=== PATIENT | female | born 1945 | race Caucasian/White ===

== ENCOUNTER → 2016-04-19 | Outpatient (CLI) | payer MEDICARE, OTHER ==
[~2016-04-19] MED LIST: LIPITOR20 MG PO; ZOLOFT100 MG PO
== END ==
LOC: MC.RAD 09:40
DX: Z12.31 Encounter for screening mammogram for malignant neoplasm of breast (principal); D24.2 Benign neoplasm of left breast; D24.1 Benign neoplasm of right breast

== ENCOUNTER → 2017-06-21 | Outpatient (CLI) | payer MEDICARE, OTHER | LOC: MC.RAD 05-22 09:40 | DX: Z12.31 Encounter for screening mammogram for malignant neoplasm of breast (principal); Z98.86 Personal history of breast implant removal ==

== ENCOUNTER → 2018-07-29 | Outpatient (CLI) | payer MEDICARE, OTHER | LOC: MC.RAD 10:43 | DX: Z12.31 Encounter for screening mammogram for malignant neoplasm of breast (principal); Z90.13 Acquired absence of bilateral breasts and nipples ==

== ENCOUNTER → 2019-05-07 | Outpatient (CLI) | payer MEDICARE, OTHER | LOC: MC.RAD 13:50 | DX: N63.20 Unspecified lump in the left breast, unspecified quadrant (principal) ==

== ENCOUNTER → 2020-06-28 | Outpatient (CLI) | payer MEDICARE, OTHER | LOC: MC.RAD 08:30 | DX: Z12.31 Encounter for screening mammogram for malignant neoplasm of breast (principal) ==

== ENCOUNTER → 2021-05-26 | Outpatient (CLI) | payer MEDICARE, OTHER | LOC: COL.RAD 08:36 | DX: R31.29 Other microscopic hematuria (principal) ==

== ENCOUNTER → 2021-09-13 | Outpatient (CLI) | payer MEDICARE | LOC: MC.RAD 08:38 | DX: Z12.31 Encounter for screening mammogram for malignant neoplasm of breast (principal) ==

== ENCOUNTER 2023-02-01 16:16 | Emergency (ER) | payer MEDICARE ==
[~2023-02-01] VITALS: Ht 154.9 cm; Wt 72.7 kg
[2023-02-01 16:21] VITALS: TEMP 97.9
[2023-02-01 17:00] LABS: BASO # 0.1 K/mm3 (0.0-0.2); BASO % 0.9 % (0.0-2.0); EOS # 0.3 K/mm3 (0.0-0.7); EOS % 4.2 % (0.0-4.0); GRAN % 62.3 % (42.2-75.2); HEMATOCRIT 40.9 % (37.0-47.0); HEMOGLOBIN 13.7 g/dl (12.5-16.0); LYMPH # 1.6 K/mm3 (1.2-3.4); LYMPH % 25.3 % (20.0-51.0); MEAN CELL VOLUME 95 fl (80.0-100.0); MEAN CORPUSCULAR HEMOGLOBIN 32 pg (27-31); MEAN CORPUSCULAR HGB CONC 34 g/dl (33.0-37.0); MEAN PLATELET VOLUME 10.1 fl (7.4-10.4); MONO # 0.4 K/mm3 (0.1-0.6); MONO % 6.8 % (1.7-9.3); PLATELET COUNT 225 K/mm3 (130-400); RED BLOOD COUNT 4.31 M/mm3 (4.10-5.30)
[2023-02-01 17:15] LABS: ALANINE AMINOTRANSFERASE 21 U/L (0-55); ALBUMIN 3.8 gm/dL (3.4-4.8); ALKALINE PHOSPHATASE 62 U/L (40-150); ANION GAP 11 mmol/L (7-16); AST,SGOT 18 U/L (5-34); BILIRUBIN,TOTAL 0.5 mg/dL (0.2-1.2); BLOOD UREA NITROGEN 18 mg/dL (10-20); CALCIUM 8.7 mg/dL (8.4-10.2); CARBON DIOXIDE 23 mmol/L (23-31); CHLORIDE 108 mmol/L (98-107); CREATININE, serum 0.84 mg/dL (0.57-1.11); GLUCOSE 89 mg/dL (70-99); POTASSIUM 4.2 mmol/L (3.5-4.5); SODIUM 142 mmol/L (136-145); TOTAL PROTEIN 6.7 gm/dL (6.2-8.1)
[2023-02-01 17:34] LABS: TROPONIN-I < 0.010 ng/mL (0.00-0.033)
[2023-02-01 19:46] VITALS: BP 134/73; PULSE 57
== END 2023-02-01 19:46 | disposition home or self-care (01) ==
LOC: COL.ER 16:16
PROVIDERS: Personal Emergency Response Attendant
DX: R07.2 Precordial pain (principal); I44.7 Left bundle-branch block, unspecified; Z87.891 Personal history of nicotine dependence

== ENCOUNTER 2023-02-27 10:05 | Day surgery (SDC) | payer MEDICARE, OTHER ==
[2023-02-27] VITALS (12 sets, daily range): BP systolic 94–130; BP diastolic 58–75; PULSE 58–66; TEMP 98.6
[~2023-02-27] VITALS: Ht 154.9 cm; Wt 73.9 kg
[~2023-02-27 10:05] MED LIST changes: +PREDNISONE20 MG PO; +ZITHROMAX Z PA250 MG PO
[2023-02-27 10:43] LABS: HEMATOCRIT 47.1 % (37.0-47.0); HEMOGLOBIN 16.1 g/dl (12.5-16.0); MEAN CELL VOLUME 92 fl (80.0-100.0); MEAN CORPUSCULAR HEMOGLOBIN 31 pg (27-31); MEAN CORPUSCULAR HGB CONC 34 g/dl (33.0-37.0); MEAN PLATELET VOLUME 9.8 fl (7.4-10.4); PLATELET COUNT 308 K/mm3 (130-400); RED BLOOD COUNT 5.15 M/mm3 (4.10-5.30); REDCELL DISTRIBUTION WIDTH-CV 11.9 % (11.5-14.5)
[2023-02-27 10:55] LABS: INR 1.1 (0.8-3.0); PROTHROMBIN TIME 12.1 SECONDS (9.7-12.8)
[2023-02-27 10:58] LABS: PARTIAL THROMBOPLASTIN TIME 30.2 SECONDS (26.0-37.0)
[2023-02-27] MEDS ORDERED: CELEXA40 MG PO (10:58)
[2023-02-27] MEDS ORDERED: DESYREL 50MG50 MG PO (10:58)
[2023-02-27] MEDS ORDERED: ZOCOR 40MG40 MG PO (10:58)
[2023-02-27] MEDS ORDERED: HCTZ 25MG TAB25 MG PO (10:59)
[2023-02-27] MEDS ORDERED: MOBIC15 MG PO (11:00)
[2023-02-27] MEDS ORDERED: ASPIRIN 81M81 MG/TA2 PO (11:01)
[2023-02-27] MEDS ORDERED: PROTONIX 40MG T40 MG PO (11:01)
[2023-02-27] MEDS ORDERED: TOPROL XL 25MG25 MG PO (11:01)
[2023-02-27 11:02] LABS: CREATININE, serum 0.97 mg/dL (0.57-1.11); POTASSIUM 3.5 mmol/L (3.5-4.5)
--- NOTE | 2023-02-27 12:41 | NUR ---
Please see Merge documentation for record of interventions, vitals and medications administered during left heart cath.
--- NOTE | 2023-02-27 17:11 | NUR ---
Pt ambulated to [facility] accompanied by . Pt is scheduled for a [facility]. EKG done. IV started L AC 20g, labs drawn. Consent for the procedure signed. Meds and HX reviewed with the pt. Pt was further prepped by label sewer. Post procedure pt came back to [facility] to recover. Right groin site assessed at time of arrival, dressing clean, dry, and intact. Pt was offered something to eat and drink. Pt did not want anything at the time. Pt was bedrest for 4 hrs. During the bedrest the site remained clean, dry, and intact. Pt got up to the restroom at the end of hr 4. Groin dressing remained clean, dry, and intact. Discharge education and information given to the pt. No questions or concerns at this time. Pt exited the unit by wheelchair to daughters car.
== END 2023-02-27 17:16 | disposition home or self-care (01) ==
LOC: COL.CAR 10:05
PROVIDERS: Internal Medicine Cardiovascular Disease
DX: I25.10 Atherosclerotic heart disease of native coronary artery without angina pectoris (principal); I10 Essential (primary) hypertension; I44.7 Left bundle-branch block, unspecified; E78.2 Mixed hyperlipidemia; I77.819 Aortic ectasia, unspecified site; I42.9 Cardiomyopathy, unspecified; R07.9 Chest pain, unspecified; Z87.891 Personal history of nicotine dependence; Z79.899 Other long term (current) drug therapy
CPT/HCPCS: C1760; C1894; J1644; J2250; J3010; Q9967

== ENCOUNTER → 2023-11-22 | Outpatient (CLI) | payer MEDICARE ==
[~2023-11-22] MED LIST changes: +ASPIRIN 81M81 MG/TA2 PO; +CELEXA40 MG PO; +DESYREL 50MG50 MG PO; +HCTZ 25MG TAB25 MG PO; +MOBIC15 MG PO; +PROTONIX 40MG T40 MG PO; +TOPROL XL 25MG25 MG PO; +ZOCOR 40MG40 MG PO
== END ==
LOC: MC.RAD 10:06
DX: Z12.31 Encounter for screening mammogram for malignant neoplasm of breast (principal); N63.10 Unspecified lump in the right breast, unspecified quadrant

== ENCOUNTER → 2023-12-05 | Outpatient (CLI) | payer MEDICARE | LOC: MC.RAD 09:51 | DX: N63.15 Unspecified lump in the right breast, overlapping quadrants (principal) ==